=== PATIENT | male | born 1965 | race Caucasian/White ===

== ENCOUNTER 2022-11-14 02:41 | Observation (INO) | payer OTHER ==
[~2022-11-14] VITALS: Ht 180.3 cm; Wt 111.9 kg
--- NOTE | 2022-11-14 03:07 | ED EENT ---
History of Present Illness General Chief Complaint: Facial Problems Stated Complaint: RT SIDE OF FACE INFECTION Source: patient History of Present Illness Date Seen by Provider: Nov 14, 2022 Time Seen by Provider: 02:57 Initial Comments PT ARRIVES VIA POV FROM HOME C/O INFECTION TO NOSE AND FACE STATES HE HAD A SORE ON THE INSIDE OF HIS RIGHT NOSTRIL-NOTICED ON Friday11/09/22 NOW IT HAS SPREAD TO MOST OF HIS NOSE AND RIGHT SIDE OF HIS FACE NO KNOWN FEVER OR CHILLS + NAUSEA, NO VOMITING HE HAS HAD THIS SAME PROBLEM IN 2016 AND HAD MRSA IN HIS NOSE. HE HAS HAD MRSA INFECTIONS MULTIPLE TIMES TO VARIOUS PARTS OF HIS BODY HE WENT TO [facility] WALK IN [facility] TODAY--11/13/22--AND RECEIVED A SHOT OF TORADOL AND WAS STARTED ON ORAL CLINDAMYCIN AND STEROIDS PT HAS HAD INCREASED PAIN, AND WOKE UP 1 HOUR AGO WITH SEVERE PAIN --RATES PAIN 8/10 HE HAS NOT TAKEN ANYTHING FOR PAIN HE HAS HAD ONE DOSE OF CLINDAMYCIN HE ALSO REPORTS A COUPLE OF WEEKS AGO, HE HAD 2 LOWER MOLARS REMOVED THAT AREA IS STILL SORE. 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 HE CLAIMS NO RECENT USE OF DRUGS OR ALCOHOL. PCP: [facility] Allergies and Home Medications Allergies Coded Allergies: amoxicillin (Verified Allergy, Intermediate, NAUSEA AND VOMITING, 11/14/22) Patient Home Medication List Home Medication List Reviewed: Yes Review of Systems Review of Systems Constitutional: no symptoms reported Eyes: No Symptoms Reported Ears: No Symptoms Reported Nose: see HPI Mouth: see HPI Throat: no symptoms reported Respiratory: no symptoms reported Cardiovascular: no symptoms reported Gastrointestinal: see HPI, nausea; No vomiting Musculoskeletal: no symptoms reported Skin: see HPI Neurological: No Symptoms Reported Hematologic/Lymphatic: No Symptoms Reported Immunological/Allergic: no symptoms reported Past Yhuojpk-Jelntz-Grcuzm Hx Patient Social History Tobacco Use?: Yes Tobacco type used: Cigarettes Smoking Status: Former Smoker Substance use?: Yes Substance type: Amphetamines, Methamphetamine, Opiates/Opioids, Misuse of prescript meds Additional substance use comme: FORMER OPIATE AND METHAMPHETMINE USE Alcohol Use?: Yes Pt feels they are or have been: No Past Medical History Surgery/Hospitalization HX: HEP C, L ANKLE SX Surgeries: Yes (LEFT ANKLE FX / ORIF) Orthopedic Respiratory: No Cardiac: No Neurological: No Genitourinary: No Gastrointestinal: Yes (HEPATITIS C--NO TREATMENT; ESOPHAGEAL SPASM 2014) Hepatitis Musculoskeletal: Yes (LEFT ANKLE FX / ORIF) Endocrine: No HEENT: Yes (MRSA OF NOSE / CELLULITIS) Cancer: No Psychosocial: Yes (POLYSUBSTANCE ABUSE) Integumentary: Yes (MRSA OF NOSE / CELLULITIS; MRSA INFECTIONS MULTIPLE TIMES) Blood Disorders: No Family Medical History SOCIAL HISTORY: -PER PT ON 10/2022 -SMOKES 1/2 PPD, RECENTLY QUIT -ETOH ABUSE--CLAIMS NO RECENT USE--DOES NOT ELABORATE -DRUG ABUSE--+ IV METHAMPHETAMINE USE AND OPIATE ABUSE--CLAIMS NO RECENT USE, BUT DOES NOT ELABORATE Physical Exam Vital Signs Vital Signs - First Documented 11/14/22 02:56 Temp 36.0 Pulse 85 Resp 18 B/P (MAP) 148/92 (110) Pulse Ox 97 O2 Delivery Room Air Height, Weight, BMI Height: '" Weight: lbs. oz. kg; BMI Method: General Appearance: WD/WN, no apparent distress, other (ANXIOUS, CONSTANT MOVEMENTS, CONSTANTLY RUBBING EYES. DOES NOT MAKE EYE CONTACT) Eyes: bilateral eye PERRL, bilateral eye EOMI, bilateral eye other (BOTH CONJUNCTIVA INJECTED, BUT NO PURULENT DRAINAGE, NO PERIORBITAL INFLAMMATION OR EDEMA OR TENDERNESS. ) Ears: bilateral ear auricle normal, bilateral ear canal normal, bilateral ear TM normal Nose: other (MODERATE SWELLING AND ERYTHEMA TO ENTIRE NOSE. VERY TENDER. THERE IS NASAL CONGESTION AND CLEAR RHINORRHEA BILATERALLY. VERY LIMITED EXAM OF NOSE DUE TO PT DISCOMFORT. ) Mouth/Throat: other (TENDERNESS TO RIGHT MAXILLA AND MANDIBLE, BUT NO OBVIOUS SWELLING OR ERYTHEMA TO THESE AREAS. THERE IS POOR DENTITION. RIGHT LOWER MOLAR AREA, WITH MILD GINGIVAL INFLAMMATION AROUND SITES OF PRIOR DENTAL EXTRACTIONS. NO FLUCTUANCE OR DRAINAGE. ) Neck: non-tender, full range of motion, supple, normal inspection Cardiovascular: regular rate, rhythm, no murmur Respiratory: normal breath sounds Neurologic/Psychiatric: outside energy sales representatives II-XII nml as tested, no motor/sensory deficits, alert, oriented x 3 Skin: normal color, warm/dry Progress/Results/Core Measures Results/Orders Lab Results Laboratory Tests Test 11/14/22 03:15 11/14/22 03:35 Range/Units White Blood Count 8.1 4.3-11.0 10^3/uL Red Blood Count 4.82 4.30-5.52 10^6/uL Hemoglobin 15.6 13.3-17.7 g/dL Hematocrit 45 40-54 % Mean Corpuscular Volume 93 80-99 fL Mean Corpuscular Hemoglobin 32 25-34 pg Mean Corpuscular Hemoglobin Concent 35 32-36 g/dL Red Cell Distribution Width 12.6 10.0-14.5 % Platelet Count 296 130-400 10^3/uL Mean Platelet Volume 9.6 9.0-12.2 fL Immature Granulocyte % (Auto) 0 % Neutrophils (%) (Auto) 54 42-75 % Lymphocytes (%) (Auto) 30 12-44 % Monocytes (%) (Auto) 12 0-12 % Eosinophils (%) (Auto) 2 0-10 % Basophils (%) (Auto) 1 0-10 % Neutrophils # (Auto) 4.4 1.8-7.8 10^3/uL Lymphocytes # (Auto) 2.5 1.0-4.0 10^3/uL Monocytes # (Auto) 1.0 0.0-1.0 10^3/uL Eosinophils # (Auto) 0.2 0.0-0.3 10^3/uL Basophils # (Auto) 0.1 0.0-0.1 10^3/uL Immature Granulocyte # (Auto) 0.0 0.0-0.1 10^3/uL Erythrocyte Sedimentation Rate 12 0-30 MM/HR Prothrombin Time 12.2 12.2-14.7 SEC INR Comment 0.9 0.8-1.4 Activated Partial Thromboplast Time 29 24-35 SEC Sodium Level 141 135-145 MMOL/L Potassium Level 3.9 3.6-5.0 MMOL/L Chloride Level 109 H 98-107 MMOL/L Carbon Dioxide Level 22 21-32 MMOL/L Anion Gap 10 5-14 MMOL/L Blood Urea Nitrogen 12 7-18 MG/DL Creatinine 1.08 0.60-1.30 MG/DL Estimat Glomerular Filtration Rate 81 BUN/Creatinine Ratio 11 Glucose Level 163 H 70-105 MG/DL Lactic Acid Level 1.14 0.50-2.00 MMOL/L Calcium Level 9.8 8.5-10.1 MG/DL Corrected Calcium 9.8 8.5-10.1 MG/DL Magnesium Level 2.1 1.6-2.4 MG/DL Total Bilirubin 0.4 0.1-1.0 MG/DL Aspartate Amino Transf (AST/SGOT) 33 5-34 U/L Alanine Aminotransferase (ALT/SGPT) 46 0-55 U/L Alkaline Phosphatase 74 40-136 U/L C-Reactive Protein High Sensitivity 0.86 H 0.00-0.50 MG/DL Total Protein 7.6 6.4-8.2 GM/DL Albumin 4.0 3.2-4.5 GM/DL Serum Alcohol < 10 <10 MG/DL Urine Color YELLOW Urine Clarity CLEAR Urine pH 8.0 5-9 Urine Specific [place] 1.010 L 1.016-1.022 Urine Protein NEGATIVE NEGATIVE Urine Glucose (UA) NEGATIVE NEGATIVE Urine Ketones NEGATIVE NEGATIVE Urine Nitrite NEGATIVE NEGATIVE Urine Bilirubin NEGATIVE NEGATIVE Urine Urobilinogen 0.2 < = 1.0 MG/DL Urine Leukocyte Esterase NEGATIVE NEGATIVE Urine RBC (Auto) NEGATIVE NEGATIVE Urine RBC NONE /HPF Urine WBC NONE /HPF Urine Squamous Epithelial Cells NONE /HPF Urine Crystals PRESENT H /LPF Urine Amorphous Sediment FEW OSMAN PHOSPHATE H /LPF Urine Bacteria NEGATIVE /HPF Urine Casts NONE /LPF Urine Mucus NEGATIVE /LPF Urine Culture Indicated NO Urine Opiates Screen NEGATIVE NEGATIVE Urine Oxycodone Screen NEGATIVE NEGATIVE Urine Methadone Screen NEGATIVE NEGATIVE Urine Propoxyphene Screen NEGATIVE NEGATIVE Urine Barbiturates Screen NEGATIVE NEGATIVE Ur Tricyclic Antidepressants Screen NEGATIVE NEGATIVE Urine Phencyclidine Screen NEGATIVE NEGATIVE Urine Amphetamines Screen NEGATIVE NEGATIVE Urine Methamphetamines Screen NEGATIVE NEGATIVE Urine Benzodiazepines Screen NEGATIVE NEGATIVE Urine Cocaine Screen NEGATIVE NEGATIVE Urine Cannabinoids Screen NEGATIVE NEGATIVE Micro Results Microbiology My Orders Orders - ISAIAS JAIMES DO Ed Iv/Invasive Line Start (11/14/22 03:03) Monitor-Rhythm Ecg Trace Only (11/14/22 03:03) Alcohol (11/14/22 03:03) Cbc With Automated Diff (11/14/22 03:03) Comprehensive Metabolic Panel (11/14/22 03:03) Hs C Reactive Protein (11/14/22 03:03) Drug Screen Stat (Urine) (11/14/22 03:03) Lactic Acid Analyzer (11/14/22 03:03) Magnesium (11/14/22 03:03) Protime With Inr (11/14/22 03:03) Partial Thromboplastin Time (11/14/22 03:03) Ua Culture If Indicated (11/14/22 03:03) Blood Culture (11/14/22 03:03) Erythrocyte Sedimentation Rate (11/14/22 03:03) Sputum Culture (11/14/22 03:03) Ed Iv/Invasive Line Start (11/14/22 03:03) Ed Iv/Invasive Line Start (11/14/22 03:03) Vital Signs Adult Sepsis Patie Q15M (11/14/22 03:03) Ondansetron Injection (Zofran Injectio (11/14/22 03:15) O2 (11/14/22 03:03) Remove Rings In Anticipation O (11/14/22 03:03) Cefepime Injection (Maxipime Injection) (11/14/22 03:15) Vancomycin Injection (Vancomycin Injecti (11/14/22 03:15) Ct Maxillofacial W (11/14/22 03:03) Ketorolac Injection (Toradol Injection) (11/14/22 03:15) Ed Iv/Invasive Line Start (11/14/22 03:07) Lactated Ringers (Lr 1000 Ml Iv Solution (11/14/22 03:15) Iohexol Injection (Omnipaque 350 Mg/Ml 1 (11/14/22 04:15) Received Contrast (Hold Metformin- Contr (11/14/22 04:15) Ns (Ivpb) (Sodium Chloride 0.9% Ivpb Bag (11/14/22 04:15) [facility] Nursing Screening/Treatme Q24HX1 (11/14/22 04:06) Nasal/Nasopharyngeal Culture (11/14/22 04:06) [facility] Screen Physician Request (11/14/22 04:04) Ed Admission (Communication) (11/14/22 04:41) Medications Given in ED Current Medications Medications Dose Ordered Sig/Basilia Route Start Time Stop Time Status Last Admin Dose Admin Cefepime HCl 1000 mg/Sodium Chloride 50 ml @ 100 mls/hr ONCE ONCE IV 11/14/22 03:15 11/14/22 03:44 DC 11/14/22 03:29 100 MLS/HR Iohexol 100 ml ONCE ONCE IV 11/14/22 04:15 11/14/22 04:39 DC 11/14/22 04:11 75 ML Ketorolac Tromethamine 30 mg ONCE ONCE IVP 11/14/22 03:15 11/14/22 03:16 DC 11/14/22 03:28 30 MG Lactated Ringer's 1,000 ml @ 0 mls/hr Q0M ONCE IV 11/14/22 03:15 11/14/22 03:16 DC 11/14/22 03:29 1,000 MLS/HR Ondansetron HCl 4 mg PRN PRN IV 11/14/22 03:15 11/14/22 03:29 DC 11/14/22 03:28 4 MG Sodium Chloride 100 ml ONCE ONCE IV 11/14/22 04:15 11/14/22 04:39 DC 11/14/22 04:11 80 ML Vital Signs/I&O 11/14/22 02:56 Temp 36.0 Pulse 85 Resp 18 B/P (MAP) 148/92 (110) Pulse Ox 97 O2 Delivery Room Air Progress Progress Note : Progress Note SEPSIS PROTOCOL INITIATED NASAL SWAB FOR MRSA SCREEN AND NASAL CULTURE OBTAINED GIVEN: -IV FLUIDS -CEFEPIME + VANCOMYCIN -TORADOL -ZOFRAN VITALS ON ADMIT: TEMP 36.0=96.8, HR 85, RR 18, BP 148/92, O2 SAT 97% ON RA FOCUS EXAM AT 0405 -SEPSIS RULED OUT, PT DOES NOT MEET CRITERIA--PT IS AFEBRILE, NORMAL WBC, NORMAL LACTIC ACID, NORMAL VITALS. MUCH IMPROVEMENT IN PAIN AND NAUSEA WITH TORADOL AND ZOFRAN PT IS MUCH CALMER, HE NOW MAKES EYE CONTACT, NO LONGER RUBBING HIS EYES. HE IS PLEASANT AND COOPERATIVE. NO DETERIORATION IN PT'S CONDITION DURING ER STAY DISCUSSED TEST RESULTS, NEED FOR ADMIT AND PT IS AGREEABLE TO PLAN. NO PRIOR VISITS HERE. Diagnostic Imaging Comments CT MAXILLOFACIALS--PER [facility] VIA FAX AT 0434 -MODERATE DAVID-NASAL AND RIGHT ANTERIOR FACE SOFT TISSUE EDEMA -NO EVIDENCE OF ABSCESS -REACTIVE ENLARGED RIGHT SUBMANDIBULAR ADENOPATHY MEASURING UP TO 18 MM Reviewed: Reviewed by Me Departure Communication (Admissions) 0435--SPOKE WITH DR. RAMSEY, HOSPITALIST FOR [facility], ACCEPTS PT FOR ADMIT. SHE WILL DO ADMIT ORDERS. Impression Primary Impression: CELLULITIS OF NOSE AND FACE Additional Impression: Hx of methicillin resistant Staphylococcus aureus infection Disposition: ADMITTED INPATIENT Condition: Stable Admissions Decision to Admit Reason: Admit from ER (General) Decision to Admit/Date: Nov 14, 2022 Time/Decision to Admit Time: 04:35 Departure-Patient Inst. Referrals: KELLY QUEVEDO APRN (PCP/Family) Primary Care Physician ISAIAS JAIMES DO Nov 14, 2022 03:07
[2022-11-14] MEDS ORDERED: KETOROLAC 30 MG/ML VIAL IVP ONE (03:15)
[2022-11-14] MEDS ORDERED: LACTATED RINGERS 1,000 ML IV ONE (03:15)
[2022-11-14] MEDS ORDERED: CEFEPIME INJECTION 1,000 MG in NS (IVPB) 50 ML IV ONE (03:15)
[2022-11-14] MEDS ORDERED: ONDANSETRON 4 MG/2 ML (SDV) Z0FRAN IV PRN ×2 (03:15→06:00)
[2022-11-14 03:26] LABS: BASOPHILS # (AUTO) 0.1 10^3/uL (0.0-0.1); BASOPHILS % (AUTO) 1 % (0-10); EOSINOPHILS # (AUTO) 0.2 10^3/uL (0.0-0.3); EOSINOPHILS % (AUTO) 2 % (0-10); HEMATOCRIT 45 % (40-54); HEMOGLOBIN 15.6 g/dL (13.3-17.7); LYMPHOCYTES # (AUTO) 2.5 10^3/uL (1.0-4.0); LYMPHOCYTES % (AUTO) 30 % (12-44); MEAN CORPUSCULAR HEMOGLOBIN 32 pg (25-34); MEAN CORPUSCULAR HGB CONC 35 g/dL (32-36); MEAN CORPUSCULAR VOLUME 93 fL (80-99); MEAN PLATELET VOLUME 9.6 fL (9.0-12.2); MONOCYTES % (AUTO) 12 % (0-12); NEUTROPHILS # (AUTO) 4.4 10^3/uL (1.8-7.8); NEUTROPHILS % (AUTO) 54 % (42-75); PLATELET COUNT 296 10^3/uL (130-400); WHITE BLOOD COUNT 8.1 10^3/uL (4.3-11.0)
[2022-11-14 03:37] LABS: CHLORIDE 109 MMOL/L (98-107); POTASSIUM 3.9 MMOL/L (3.6-5.0); SODIUM 141 MMOL/L (135-145)
[2022-11-14 03:38] LABS: CALCIUM 9.8 MG/DL (8.5-10.1); INR 0.9 (0.8-1.4); PROTHROMBIN TIME PATIENT 12.2 SEC (12.2-14.7)
[2022-11-14 03:39] LABS: GLUCOSE 163 MG/DL (70-105); TOTAL PROTEIN 7.6 GM/DL (6.4-8.2)
[2022-11-14 03:40] LABS: BILIRUBIN,URINE NEGATIVE (NEGATIVE); CLARITY,URINE CLEAR; COLOR,URINE YELLOW; GLUCOSE, URINE (UA) NEGATIVE (NEGATIVE); KETONES,URINE NEGATIVE (NEGATIVE); LEUKOCYTE ESTERASE ,URINE NEGATIVE (NEGATIVE); NITRITE,URINE NEGATIVE (NEGATIVE); PROTEIN,URINE NEGATIVE (NEGATIVE)
[2022-11-14 03:40] LABS: CARBON DIOXIDE 22 MMOL/L (21-32)
[2022-11-14 03:41] LABS: BILIRUBIN,TOTAL 0.4 MG/DL (0.1-1.0)
[2022-11-14 03:43] LABS: ALKALINE PHOSPHATASE 74 U/L (40-136); CREATININE SERUM 1.08 MG/DL (0.60-1.30); GFR ESTIMATED 81
[2022-11-14 03:44] LABS: BUN/CREATININE RATIO 11
[2022-11-14 03:46] LABS: ALANINE AMINOTRANSFERASE 46 U/L (0-55)
[2022-11-14 03:47] LABS: MAGNESIUM 2.1 MG/DL (1.6-2.4)
[2022-11-14 03:49] LABS: AMORPHOUS SEDIMENT,UR FEW AMOR PHOSPHATE /LPF; BACTERIA,URINE NEGATIVE /HPF
[2022-11-14 03:51] LABS: ERYTHROCYTE SEDIMENTATION RATE 12 MM/HR (0-30)
[2022-11-14 03:51] LABS: AMPHETAMINE SCREEN, URINE NEGATIVE (NEGATIVE); BARBITURATE SCREEN URINE NEGATIVE (NEGATIVE); BENZODIAZEPINES SCREEN URINE NEGATIVE (NEGATIVE); CANNABINOID SCREEN, URINE NEGATIVE (NEGATIVE); COCAINE SCREEN URINE NEGATIVE (NEGATIVE); METHADONE STAT NEGATIVE (NEGATIVE); OPIATE SCREEN URINE NEGATIVE (NEGATIVE); OXYCODONE STAT NEGATIVE (NEGATIVE); PROPOXYPHENE STAT NEGATIVE (NEGATIVE); TRICYCLIC ANTIDEPRESSANTS SCRE NEGATIVE (NEGATIVE)
[2022-11-14] MEDS ORDERED: HOLD METFORMIN - RECEIVED CONTRAST 20 ML VIAL IV SCH (04:15)
[2022-11-14] MEDS ORDERED: IOHEXOL 350 MG/ML 100 ML (OMNIPAQUE 350) VIAL IV ONE (04:15)
[2022-11-14] MEDS ORDERED: NS 100 ML (IVPB) BAG IV ONE (04:15)
[2022-11-14] MEDS: VANCOMYCIN INJECTION 1,000 MG in NS (IVPB) 250 ML IV SCH ×2 (04:20→05:32)
[2022-11-14] MEDS ORDERED: ANTACID SUSP 30 ML UDC (MYLANTA) PO PRN (06:00)
[2022-11-14] MEDS ORDERED: MELATONIN 3 MG TABLET PO PRN (06:00)
[2022-11-14] MEDS ORDERED: CALCIUM CARBONATE 500 MG (TUMS) TAB.CHEW PO PRN (06:00)
[2022-11-14] MEDS ORDERED: ACETAMINOPHEN 325 MG TABLET PO PRN (06:00)
[2022-11-14] MEDS ORDERED: LACTULOSE SYRUP 10GM/15ML (ENULOSE) 30ML UDC PO PRN (06:00)
[2022-11-14] MEDS ORDERED: MILK OF MAGNESIA 400 MG/5 ML 30 ML UDC PO PRN (06:00)
[2022-11-14] MEDS ORDERED: VANCOMYCIN INJECTION 0.1 MG in NS (IVPB) 250 ML IV SCH (06:00)
[2022-11-14] MEDS ORDERED: HYDROmorphone 2 MG/ML VIAL (DILAUDID) IV PRN (06:00)
[2022-11-14] MEDS ORDERED: polyethylene glycoL POWDER 17 GM (MIRALAX) PACK PO PRN (06:00)
[2022-11-14] MEDS ORDERED: diphenhydrAMINE 50 MG/ML INJ (BENADRYL) IVP PRN (06:00)
[2022-11-14] MEDS ORDERED: ONDANSETRON 4 MG (ZOFRAN) ORAL DISSOLVE TAB PO PRN (06:00)
[2022-11-14] MEDS ORDERED: cloNIDine 0.1 MG (CATAPRES) TAB PO PRN (06:00)
[2022-11-14] MEDS ORDERED: ALPRAZolam 1 MG (XANAX) TAB PO PRN (06:00)
[2022-11-14] MEDS ORDERED: BISACODYL 10 MG SUPP (DULCOLAX) PR PRN (06:00)
[2022-11-14] MEDS ORDERED: diphenhydrAMINE 25 MG TAB (BENADRYL) PO PRN (06:00)
[2022-11-14 06:16] VITALS: BP 148/92
--- NOTE | 2022-11-14 06:24 | Diagnostic Imaging Report ---
PROCEDURE: CT maxillofacial with contrast. TECHNIQUE: After intravenous administration of contrast, axial images were obtained through the face and reformatted into coronal and sagittal planes. Auto Exposure Controls were utilized during the CT exam to meet ALARA standards for radiation dose reduction. INDICATION: Facial pain and swelling. No prior examinations are available for comparison. FINDINGS: The calvarium and facial bones are intact. There is no fracture. There is some soft tissue swelling in the right anterior face and nasal region. There is no evidence of discrete abscess. The orbits and intraorbital structures are unremarkable. Sinuses are clear. There is a large right submandibular lymph node measuring up to 1.8 cm likely reactive. IMPRESSION: Moderate paranasal and right anterior face soft tissue edema without discrete abscess. There is what appears to be a reactive appearing enlarged right submandibular lymph node measuring up to 1.8 cm. Dictated by: Dictated on workstation # [id number]
[2022-11-14] MEDS: NS IV 1000 ML 1,000 ML IV SCH ×3 (06:29→21:51)
[2022-11-14] MEDS ORDERED: RT-ALBUTEROL SULF 2.5 MG/3 ML PRE-MIX VIAL INH PRN (06:30)
[2022-11-14] MEDS: ENOXAPARIN 40 MG/0.4 ML (LOVENOX) SYR SC SCH (06:33)
[2022-11-14 07:17] VITALS: BP 118/71
[2022-11-14] MEDS: DOCUSATE SODIUM 100 MG (COLACE) CAP PO SCH ×2 (07:49→20:57)
[2022-11-14] MEDS: SENNOSIDES 8.6 MG (SENOKOT) TAB PO SCH ×2 (07:49→20:58)
[2022-11-14] MEDS: CEFEPIME INJECTION 1,000 MG in NS (IVPB) 50 ML IV SCH ×3 (10:33→20:07)
--- NOTE | 2022-11-14 11:16 | Consultation - Surgery ---
SANDOVAL FORMAN 11/14/22 1116: History of Present Illness History of Present Illness Patient Consulted On(shannon/time) 11/14/22 11:03 Date Seen by Provider: Nov 14, 2022 Time Seen by Provider: 10:30 Reason for Visit: facial pain, swelling, possible abcess History of Present Illness Pt was seen lying comfortably in bed, he was alert and oriented x4, has been having pain in his right nostril since friday and said it felt like it got infected and began to spread from his nose laterally to his maxilla, mandibular angle, and preauricular regions. He mentioned having an associated headache that was causing pressure on the front of his head and mildly alleviated by placing pressure on his frontal sinus. The headache and pain has caused him to feel nauseas but he denies any fevers, chills, myalgia, or vomiting. He said he had this happen before in 2015 where he let the infection go untreated for a longer period than this time, he showed me pictures of his past that showed cellulitis with what looked like scattered small( .25-.5cm) black eschar like scabbing from his right nose to his maxilla. He said they just gave him abx and that was enough to help him recover. He is agreeable to the idea of a possible incision and drainage. Denies CP, SOB, abd pain, vision changes. +frontal lobe headache, poor dentition, nausea Allergies and Home Medications Allergies Coded Allergies: amoxicillin (Verified Allergy, Intermediate, NAUSEA AND VOMITING, 11/14/22) Patient Home Medication List Acetaminophen (Tylenol Extra Strength) 500 Mg Tablet, 1,000 MG PO Q8H PRN for PAIN-MILD (1-4), (Reported) Entered as Reported by: AJAY PORRAS on 11/14/221599 Last Action: Reviewed Clindamycin HCl (Clindamycin HCl) 150 Mg Capsule, 450 MG PO TID, (Reported) Entered as Reported by: AJAY PORRAS on 11/14/221599 Last Action: Reviewed Ibuprofen (Ibuprofen) 200 Mg Tablet, 400-600 MG PO Q8H PRN for PAIN-MILD (1-4), (Reported) Entered as Reported by: AJAY PORRAS on 11/14/221599 Last Action: Reviewed Past Xvhlahn-Esccrb-Qveokt Hx Patient Social History Smoking Status: Former Smoker Alcohol Use?: No Substance type: Amphetamines, Methamphetamine, Opiates/Opioids, Misuse of prescript meds Have you traveled recently?: No Surgeries History of Surgeries: Yes (LEFT ANKLE FX / ORIF) Surgeries: Orthopedic Respiratory History of Respiratory Disorde: No Cardiovascular History of Cardiac Disorders: No Neurological History of Neurological Disord: No Genitourinary History of Genitourinary Disor: No Gastrointestinal History of Gastrointestinal Di: Yes (HEPATITIS C--NO TREATMENT; ESOPHAGEAL SPASM 2014) Gastrointestinal Disorders: Hepatitis Musculoskeletal History of Musculoskeletal Dis: Yes (LEFT ANKLE FX / ORIF) Endocrine History of Endocrine Disorders: No HEENT History of HEENT Disorders: Yes (MRSA OF NOSE / CELLULITIS) Cancer History of Cancer: No Psychosocial History of Psychiatric Problem: Yes (POLYSUBSTANCE ABUSE) Integumentary History of Skin or Integumenta: Yes (MRSA OF NOSE / CELLULITIS; MRSA INFECTIONS MULTIPLE TIMES) Blood Transfusions History of Blood Disorders: No Review of Systems-General Constitutional: No chills, No diaphoresis, No dizziness, No fever, No weakness EENTM: nose pain; No blurred vision, No double vision, No hoarseness, No mouth pain, No epistaxis Respiratory: No cough, No dyspnea on exertion, No short of breath Cardiovascular: No chest pain, No palpitations Gastrointestinal: No abdominal pain; nausea; No vomiting Genitourinary: No dysuria, No hematuria Musculoskeletal: No muscle stiffness, No muscle cramps, No neck pain Skin: change in color (right nose to right preauricular region, down to mandibular angle), rash (on face) Psychiatric/Neurological: Anxiety; Denies Depressed; Headache; Denies Numbness, Denies Weakness Physical Exam-General Problems Physical Exam Vital Signs Vital Signs - First Documented 11/14/22 11/14/22 02:56 06:16 Temp 36.0 Pulse 85 Resp 18 B/P (MAP) 148/92 (110) Pulse Ox 97 O2 Delivery Room Air FiO2 21 Capillary Refill : Less Than 3 Seconds General Appearance: no apparent distress, obese Eyes: Bilateral Eye PERRL, Bilateral Eye EOMI HEENT: PERRL/EOMI, pharynx normal; No scleral icterus (R), No scleral icterus (L), No photophobia, No tonsillar exudate; other (There is a black nodule inside the right nostril on the anterior lateral aspect of the lumen, ~1-2cm. it appears to be folliculitis, or commodomal in nature. There is no fluctulance felt and no visible/reported purulent discharge) Neck: non-tender, full range of motion, supple, lymphadenopathy (R) (submandibular 1.5cm); No thyromegaly Respiratory: chest non-tender, lungs clear, no respiratory distress, no accessory muscle use Cardiovascular: regular rate, rhythm, no murmur Peripheral Pulses: 2+ Radial Pulses (R), 2+ Radial Pulses (L) Gastrointestinal: non tender, soft; No guarding Back: no CVA tenderness, no vertebral tenderness Extremities: normal range of motion, non-tender; No swelling Neurologic/Psychiatric: alert, oriented x 3; No aphasia, No EOM palsy, No facial droop Skin: warm/dry; No diaphoresis; other ((calor, rubor, dolor, tumor) on right side of face), rash (evenly distributed beefy red erythema of the face and nose) Lymphatic: other (right anterior cervical node) Data Review Labs Laboratory Tests 11/14/22 03:15: White Blood Count 8.1, Red Blood Count 4.82, Hemoglobin 15.6, Hematocrit 45, Mean Corpuscular Volume 93, Mean Corpuscular Hemoglobin 32, Mean Corpuscular Hemoglobin Concent 35, Red Cell Distribution Width 12.6, Platelet Count 296, Mean Platelet Volume 9.6, Immature Granulocyte % (Auto) 0, Neutrophils (%) (Auto) 54, Lymphocytes (%) (Auto) 30, Monocytes (%) (Auto) 12, Eosinophils (%) (Auto) 2, Basophils (%) (Auto) 1, Neutrophils # (Auto) 4.4, Lymphocytes # (Auto) 2.5, Monocytes # (Auto) 1.0, Eosinophils # (Auto) 0.2, Basophils # (Auto) 0.1, Immature Granulocyte # (Auto) 0.0, Erythrocyte Sedimentation Rate 12, Prothrombin Time 12.2, INR Comment 0.9, Activated Partial Thromboplast Time 29, Sodium Level 141, Potassium Level 3.9, Chloride Level 109H, Carbon Dioxide Level 22, Anion Gap 10, Blood Urea Nitrogen 12, Creatinine 1.08, Estimat Glomerular Filtration Rate 81, BUN/Creatinine Ratio 11, Glucose Level 163H, Lactic Acid Level 1.14, Calcium Level 9.8, Corrected Calcium 9.8, Magnesium Level 2.1, Total Bilirubin 0.4, Aspartate Amino Transf (AST/SGOT) 33, Alanine Aminotransferase (ALT/SGPT) 46, Alkaline Phosphatase 74, C-Reactive Protein High Sensitivity 0.8 6H, Total Protein 7.6, Albumin 4.0, Serum Alcohol < 10 11/14/22 03:35: Urine Color YELLOW, Urine Clarity CLEAR, Urine pH 8.0, Urine Specific [place] 1.010L, Urine Protein NEGATIVE, Urine Glucose (UA) NEGATIVE, Urine Ketones NEGATIVE, Urine Nitrite NEGATIVE, Urine Bilirubin NEGATIVE, Urine Urobilinogen 0.2, Urine Leukocyte Esterase NEGATIVE, Urine RBC (Auto) NEGATIVE, Urine RBC NONE, Urine WBC NONE, Urine Squamous Epithelial Cells NONE, Urine Crystals PRESENTH, Urine Amorphous Sediment FEW OSMAN PHOSPHATEH, Urine Bacteria NEGATIVE, Urine Casts NONE, Urine Mucus NEGATIVE, Urine Culture Indicated NO, Urine Opiates Screen NEGATIVE, Urine Oxycodone Screen NEGATIVE, Urine Methadone Screen NEGATIVE, Urine Propoxyphene Screen NEGATIVE, Urine Barbiturates Screen NEGATIVE, Ur Tricyclic Antidepressants Screen NEGATIVE, Urine Phencyclidine Screen NEGATIVE, Urine Amphetamines Screen NEGATIVE, Urine Methamphetamines Screen NEGATIVE, Urine Benzodiazepines Screen NEGATIVE, Urine Cocaine Screen NEGATIVE, Urine Cannabinoids Screen NEGATIVE Microbiology Assessment/Plan Assessment/Plan Assessment/Plan Facial Cellulitis Possible nasal cavity abscess Hx of MRSA infections * Due to the size, location, CT findings, and current presentation, pt does not appear to have need of incision & drainage * Continue conservative management with current abx regimen * continue to monitor for failure of improvement, increased size of intranasal nodule (fluctulance and or purulent discharge). BRUCE TAY DO 11/14/221905: History of Present Illness History of Present Illness History of Present Illness Consult for facial cellulitis requested by Dr. Kern. Patient is a 57 year old male who has been having right nostril pain for 6 days. Patient with increasing pressure in sinuses and the right nose. Was given Clindamycin from clinic and took a dose but due to pain went to ED. Since being admitted he states his nose is starting to feel better. Not worsening. Pain is better controlled. Has no other complaints. Had ct scan maxillofacial: Moderate paranasal and right anterior face soft tissue edema without discrete abscess. There is what appears to be a reactive appearing enlarged right submandibular lymph node measuring up to 1.8 cm. Allergies and Home Medications Allergies Coded Allergies: amoxicillin (Verified Allergy, Intermediate, NAUSEA AND VOMITING, 11/14/22) Patient Home Medication List Home Medication List Reviewed: Yes Acetaminophen (Tylenol Extra Strength) 500 Mg Tablet, 1,000 MG PO Q8H PRN for PAIN-MILD (1-4), (Reported) Entered as Reported by: AJAY PORRAS on 11/14/221599 Last Action: Reviewed Clindamycin HCl (Clindamycin HCl) 150 Mg Capsule, 450 MG PO TID, (Reported) Entered as Reported by: AJAY PORRAS on 11/14/221599 Last Action: Reviewed Ibuprofen (Ibuprofen) 200 Mg Tablet, 400-600 MG PO Q8H PRN for PAIN-MILD (1-4), (Reported) Entered as Reported by: AJAY PORRAS on 11/14/221599 Last Action: Reviewed Past Njmduyo-Fnolhq-Jojloo Hx Reviewed Nursing Assessment Reviewed/Agree w Nursing PMH: Yes Family Medical History Significant Family History: No Pertinent Family Hx Review of Systems-General Constitutional: No chills, No fever EENTM: nose pain; No blurred vision, No double vision Respiratory: No cough, No dyspnea on exertion Cardiovascular: No chest pain, No palpitations Gastrointestinal: No abdominal pain; nausea; No vomiting Genitourinary: No dysuria, No hematuria Musculoskeletal: No back pain, No joint pain Skin: change in color (right nose to right preauricular region, down to ma ndibular angle), rash (on face) Psychiatric/Neurological: Anxiety; Denies Depressed; Headache; Denies Numbness, Denies Weakness All Other Systems Reviewed Negative Unless Noted: Yes (Negative excepted noted.) Physical Exam-General Problems Physical Exam General Appearance: no apparent distress, obese HEENT: PERRL/EOMI, other (There is a black nodule inside the right nostril on the anterior lateral aspect of the lumen, ~1-2cm. i There is no fluctulance felt and no visible/reported purulent discharge) Gastrointestinal: non tender, soft Rectal: deferred Back: no CVA tenderness Extremities: normal range of motion, non-tender Neurologic/Psychiatric: alert, oriented x 3 Skin: warm/dry, rash (evenly distributed beefy red erythema of the face and nose) Lymphatic: other (right anterior cervical node) Assessment/Plan Assessment/Plan Assessment/Plan Facial Cellulitis Hx of MRSA infections Lymphadenopathy cervical * by physical exam and CT findings, pt does not appear to have need of incision & drainage * Continue conservative management with current abx regimen * Cevical lymphadenopathy likely reactive Supervisory-Addendum Brief Verification & Attestation Participated in pt care: history, MDM, physical Personally performed: exam, history, MDM, supervision of care Care discussed with: Medical Student Procedures: n/a Results interpretation: Verified all documentation Verification and Attestation of Medical Student E/M Service A medical student performed and documented this service in my presence. I reviewed and verified all information documented by the medical student and made modifications to such information, when appropriate. I personally performed the physical exam and medical decision making. Bruce Tay, Nov 14, 2022,19:10 SANDOVAL FORMAN Nov 14, 2022 11:16 BRUCE TAY DO Nov 14, 2022 19:06
[2022-11-14 11:26] VITALS: BP 120/75
--- NOTE | 2022-11-14 13:26 | History & Physical-Hospitalist ---
REBECAIZTA T 11/14/22 1326: History of Present Illness HPI/Chief Complaint Mr. Fuentes is a 57 year old male with pmhx significant for hep C (untreated), hx of MRSA infections who presented to the ED on the day of admission with infection to the nose and face. Pt reports that he had a sore that developed on 11/09 on the inside of his right nostril which he notes to have spread. He has a hx of this in 2016 and has had MRSA in the nose and MRSA infections in multiple areas of the body. Pt reports that he went to [facility] the day before coming in the ED and was prescribed toradol, oral clindamycin and steroids. He says that after [facility] visit he had severe worsening pain during the night which caused him to go to the ER. Today patient reports that his pain has significantly improved and is a 4/10, he has noticed decreased swelling. Pt has associated ANN and nausea. Pt denies any nsasl drainage, fever, blurry vision, CP, SOB. Pt denies any new or worsening sx. No other complaints. CT scan showed moderate paranasal and right anterior face soft tissue edema without descrete abscess and there is what appears to be a right submandibular lymph node 1.8 cm Source: patient Date Seen 11/14/22 Time Seen by a Provider: 08:20 Attending Physician Raquel Soliz Aprn PCP Admitting Physician: Medina Ramsey DO Attending Physician: Medina Ramsey DO Referring Physician Date of Admission Nov 14, 2022 at 05:46 Home Medications & Allergies Home Medications Reviewed patient Home Medication Reconciliation performed by pharmacy medication reconciliations water technician and/or nursing. Patients Allergies have been reviewed. Allergies Allergies Coded Allergies amoxicillin (Verified Allergy, Intermediate, NAUSEA AND VOMITING, 11/14/22) Past Jlynstc-Hpemep-Awgwmw Hx Patient Social History Tobacco Use?: No Tobacco type used: Cigarettes Smoking Status: Former Smoker Smokeless Tobacco Frequency: Former User Use of E-Cig and/or Vaping dev: No Substance use?: No Substance type: Amphetamines, Methamphetamine, Opiates/Opioids, Misuse of pres cript meds Additional substance use comme: HISTORY OF Alcohol Use?: No Additional alcohol type: HISTORY OF Pt feels they are or have been: No Current Status Advance Directives: No Advance Directive Location: Home Communicates: Verbally Primary Language: Turkish Preferred Spoken Language: Turkish Is interpretation needed?: No Sensory deficits: Vision impairment Implanted or Applied Medical D: Orthopedic hardware Past Medical History Surgeries: Orthopedic Hepatitis Blood Disorders: No Family Medical History SOCIAL HISTORY: -PER PT ON 10/2022 -SMOKES 1/2 PPD, RECENTLY QUIT -ETOH ABUSE--CLAIMS NO RECENT USE--DOES NOT ELABORATE -DRUG ABUSE--+ IV METHAMPHETAMINE USE AND OPIATE ABUSE--CLAIMS NO RECENT USE, BUT DOES NOT ELABORATE Review of Systems Constitutional: no symptoms reported EENTM: nose pain, other (right paranasal tenderness and swelling ); No blurred vision, No double vision Respiratory: no symptoms reported Cardiovascular: no symptoms reported Gastrointestinal: no symptoms reported Genitourinary: no symptoms reported Musculoskeletal: no symptoms reported Skin: No change in color, No lesions Psychiatric/Neurological: Headache All Other Systems Reviewed Negative Unless Noted: Yes Physical Exam Physical Exam Vital Signs Vital Signs - First Documented 11/14/22 11/14/22 02:56 06:16 Temp 36.0 Pulse 85 Resp 18 B/P (MAP) 148/92 (110) Pulse Ox 97 O2 Delivery Room Air FiO2 21 Capillary Refill : Less Than 3 Seconds Height, Weight, BMI Height: '" Weight: lbs. oz. kg; 34.36 BMI Method: General Appearance: No Apparent Distress, WD/WN HEENT: PERRL/EOMI Neck: Normal Inspection, Non Tender Respiratory: Chest Non Tender, Lungs Clear, Normal Breath Sounds, No Accessory Muscle Use, No Respiratory Distress Cardiovascular: Regular Rate, Rhythm, No Edema, Normal Peripheral Pulses Neurologic/Psychiatric: Alert, Oriented x3, Normal Mood/Affect Skin: Normal Color, Warm/Dry, Other (Right paranasal tenderness with mild swelling) Lymphatic: No Adenopathy Results Results/Procedures Labs Laboratory Tests 11/14/22 03:15 Patient resulted labs reviewed. Imaging: Reviewed Imaging Report Assessment/Plan Admission Diagnosis cellulitis Admission Status: Inpatient Order (span 2 midnights) Reason for Inpatient Admission: cellulitis Assessment and Plan Facial Cellulitis Possible nasal cavity abscess Hx of MRSA infection Consult gen surg Vanc and Cefepime Consult gen surg - due to the size, location, CT findings, and current presentation, pt does not appear to have need of incision & drainage Continue to monitor Hep C pos (no treatment) Hx of substance abuse disorder Hx of alcohol abuse disorder Diet:Regular DVT prophylaxis: Lovenox Disposition: likely home tomorrow pending pt status MEDINA RAMSEY DO 11/15/22 0445: Assessment/Plan Admission Diagnosis Admission Status: Inpatient Order (span 2 midnights) Reason for Inpatient Admission: severe cellulitis Supervisory-Addendum Brief Verification & Attestation Participated in pt care: history, MDM, physical Personally performed: exam, history, MDM, supervision of care Care discussed with: Medical Student Procedures: n/a Results interpretation: Verified all documentation Verification and Attestation of Medical Student E/M Service A medical student performed and documented this service in my presence. I reviewed and verified all information documented by the medical student and made modifications to such information, when appropriate. I personally performed the physical exam and medical decision making. Medina Ramsey, Nov 15, 2022,04:45 ZITA JOSE Nov 14, 2022 13:26 MEDINA RAMSEY DO Nov 15, 2022 04:45
[2022-11-14 15:48] VITALS: BP 134/83
[2022-11-14] MEDS: KETOROLAC 30 MG/ML VIAL IVP PRN ×2 (16:00→21:51)
[2022-11-14] MEDS ORDERED: ACET-2267 PO (16:00)
[2022-11-14] MEDS ORDERED: CLIN150C20 PO (16:00)
[2022-11-14] MEDS ORDERED: IBUP-2473 PO (16:00)
[2022-11-14] MEDS: VANCOMYCIN 1500MG/300ML PREMIX IV SCH (17:30)
[2022-11-14 19:51] VITALS: BP 135/76
[2022-11-14 23:30] VITALS: BP 129/74
[2022-11-15] MEDS: KETOROLAC 30 MG/ML VIAL IVP PRN ×2 (03:44→12:14)
[2022-11-15] MEDS: CEFEPIME INJECTION 1,000 MG in NS (IVPB) 50 ML IV SCH ×2 (03:45→08:59)
[2022-11-15 03:51] VITALS: BP 131/79
[2022-11-15] MEDS: VANCOMYCIN 1500MG/300ML PREMIX IV SCH (05:22)
[2022-11-15] MEDS: ENOXAPARIN 40 MG/0.4 ML (LOVENOX) SYR SC SCH (05:22)
[2022-11-15 05:55] LABS: BASOPHILS % (AUTO) 1 % (0-10); EOSINOPHILS # (AUTO) 0.2 10^3/uL (0.0-0.3); EOSINOPHILS % (AUTO) 4 % (0-10); HEMATOCRIT 41 % (40-54); HEMOGLOBIN 14.1 g/dL (13.3-17.7); LYMPHOCYTES # (AUTO) 1.8 10^3/uL (1.0-4.0); LYMPHOCYTES % (AUTO) 27 % (12-44); MEAN CORPUSCULAR HEMOGLOBIN 32 pg (25-34); MEAN CORPUSCULAR HGB CONC 35 g/dL (32-36); MEAN CORPUSCULAR VOLUME 94 fL (80-99); MEAN PLATELET VOLUME 10.3 fL (9.0-12.2); MONOCYTES # (AUTO) 0.7 10^3/uL (0.0-1.0); MONOCYTES % (AUTO) 11 % (0-12); NEUTROPHILS # (AUTO) 3.7 10^3/uL (1.8-7.8); NEUTROPHILS % (AUTO) 57 % (42-75); PLATELET COUNT 220 10^3/uL (130-400); WHITE BLOOD COUNT 6.5 10^3/uL (4.3-11.0)
[2022-11-15 06:28] LABS: ALBUMIN 3.4 GM/DL (3.2-4.5); BILIRUBIN,TOTAL 0.5 MG/DL (0.1-1.0); CALCIUM 9.3 MG/DL (8.5-10.1); CREATININE SERUM 0.92 MG/DL (0.60-1.30); POTASSIUM 4.2 MMOL/L (3.6-5.0); TOTAL PROTEIN 6.6 GM/DL (6.4-8.2)
--- NOTE | 2022-11-15 07:53 | Progress Note - Surgery ---
Subjective Date Seen by a Provider: Nov 15, 2022 Time Seen by a Provider: 07:00 Subjective/Events-last exam Pt was upright in his chair, eating breakfast, in no distress. He reports starting to feel better, and that pain is managed and the redness/heat on his face is going down. Denies fevers, chills, nausea, CP, SOB, v/d, purulent rhinorrhea. +mild paroxysmal headaches, improved from yesterday. Review of Systems General: No Chills, No Night Sweats, No Fatigue, No Malaise HEENT: Head Aches; No Visual Changes, No Dysphasia, No Sore Throat Pulmonary: No Dyspnea, No Cough, No Pleuritic Chest Pain Cardiovascular: No: Chest Pain, Palpitations, Edema, Lt Headedness Gastrointestinal: No: Nausea, Vomiting, Abdominal Pain, Diarrhea, Constipation Genitourinary: No Dysuria, No Incontinence, No Retention Musculoskeletal: No: other, neck pain, shoulder pain, arm pain, back pain, hand pain, leg pain, foot pain Neurological: No: Change in speech, Confusion Focused Exam Lactate Level 11/14/22 03:15: Lactic Acid Level 1.14 Objective Exam Vital Signs Date Time Temp Pulse Resp B/P (MAP) Pulse Ox O2 Delivery O2 Flow Rate FiO2 11/15/22 03:51 37.0 66 16 131/79 (96) 96 Room Air 11/14/22 23:30 36.6 64 20 129/74 (92) 97 Room Air 11/14/22 22:07 97 Room Air 11/14/22 20:57 Room Air 11/14/22 19:51 37.0 71 20 135/76 (95) 96 Room Air 11/14/22 15:48 37.0 55 18 134/83 (100) 95 Room Air 11/14/22 11:26 36.6 60 18 120/75 (90) 94 Room Air 11/14/22 08:00 Room Air I & O 11/15/22 07:00 Intake Total 3810 ml Balance 3810 ml Capillary Refill : Less Than 3 Seconds General Appearance: No Apparent Distress, WD/WN, Obese HEENT: PERRL/EOMI, Moist Mucous Membranes; No Photophobia, No Tonsillar Exudate Neck: Non Tender, Lymphadenopathy (R) Respiratory: Chest Non Tender, Lungs Clear, No Accessory Muscle Use, No Respiratory Distress Cardiovascular: Regular Rate, Rhythm, No Edema Peripheral Pulses: 2+ Radial Pulses (R), 2+ Radial Pulses (L) Gastrointestinal: non tender, soft; No distended, No guarding Extremity: No No Calf Tenderness, No No Pedal Edema, No Inflammation Neurologic/Psychiatric: Alert, Oriented x3, Normal Mood/Affect Skin: Warm/Dry; No Diaphoresis, No Pallor, No Rash; Other (facial redness and swelling improved from yesterday, right nostril still erythematous and swollen. ) Lymphatic: Other (anterior cervical) Results Lab Laboratory Tests 11/15/22 05:26: White Blood Count 6.5, Red Blood Count 4.35, Hemoglobin 14.1, Hematocrit 41, Mean Corpuscular Volume 94, Mean Corpuscular Hemoglobin 32, Mean Corpuscular Hemoglobin Concent 35, Red Cell Distribution Width 12.6, Platelet Count 220, Mean Platelet Volume 10.3, Immature Granulocyte % (Auto) 0, Neutrophils (%) (Auto) 57, Lymphocytes (%) (Auto) 27, Monocytes (%) (Auto) 11, Eosinophils (%) (Auto) 4, Basophils (%) (Auto) 1, Neutrophils # (Auto) 3.7, Lymphocytes # (Auto) 1.8, Monocytes # (Auto) 0.7, Eosinophils # (Auto) 0.2, Basophils # (Auto) 0.0, Immature Granulocyte # (Auto) 0.0, Sodium Level 139, Potassium Level 4.2, C hloride Level 109H, Carbon Dioxide Level 18L, Anion Gap 12, Blood Urea Nitrogen 12, Creatinine 0.92, Estimat Glomerular Filtration Rate 98, BUN/Creatinine Ratio 13, Glucose Level 119H, Calcium Level 9.3, Corrected Calcium 9.8, Total Bilirubin 0.5, Aspartate Amino Transf (AST/SGOT) 34, Alanine Aminotransferase (ALT/SGPT) 41, Alkaline Phosphatase 60, Total Protein 6.6, Albumin 3.4 Microbiology 11/14/22 MRSA Screen - Final, Complete Assessment/Plan Assessment/Plan Assessment/Plan Facial Cellulitis Hx of MRSA infections Lymphadenopathy cervical * pt does not appear to have need of incision & drainage still * Continue conservative management with current abx regimen * Cevical lymphadenopathy likely reactive SANDOVAL FORMAN Nov 15, 2022 07:53
[2022-11-15 08:42] VITALS: BP 129/90
[2022-11-15] MEDS: DOCUSATE SODIUM 100 MG (COLACE) CAP PO SCH (09:00)
[2022-11-15] MEDS: SENNOSIDES 8.6 MG (SENOKOT) TAB PO SCH (09:00)
--- NOTE | 2022-11-15 11:17 | Discharge Summary ---
Discharge Summary Hospital Course Was the Problem List Reviewed?: Yes Problems/Dx: (1) CELLULITIS OF NOSE AND FACE Hospital Course Date of Admission: Nov 14, 2022 at 05:46 Admission Diagnosis : Family Physician/Provider: aRquel Soliz [employer] Date of Discharge: 11/15/22 Discharge Diagnosis: [ ] Hospital Course: Mr. Fuentes is a 57 year old male with pmhx significant for hep C (untreated), hx of MRSA infections who presented to the ED on the day of admission with infection to the nose and face. Pt was admitted from 11/14-11/15. He has a hx of this in 2016 and has had MRSA in the nose and MRSA infections in multiple areas of the body. Pt reports that he went to [facility] clinic the day before coming in the ED and was prescribed toradol, oral clindamycin and steroids. He says that after [facility] visit he had severe worsening pain during the night which caused him to go to the ER. Pt improved during admission and status was table. He received Torodol for pain and IV antibiotics. General surgery was consulted and no descrete abscess was formed so treatment was conservative management and no need for I&D. Pt discharged with continuation of Clindamycin he received from [facility] and to follow up with PCP. CT scan showed moderate paranasal and right anterior face soft tissue edema without descrete abscess and there is what appears to be a right submandibular lymph node 1.8 cm ZITA JOSE Labs and Pending Lab Test: Laboratory Tests 11/15/22 05:26: White Blood Count 6.5, Red Blood Count 4.35, Hemoglobin 14.1, Hematocrit 41, Mean Corpuscular Volume 94, Mean Corpuscular Hemoglobin 32, Mean Corpuscular Hemoglobin Concent 35, Red Cell Distribution Width 12.6, Platelet Count 220, Mean Platelet Volume 10.3, Immature Granulocyte % (Auto) 0, Neutrophils (%) (Auto) 57, Lymphocytes (%) (Auto) 27, Monocytes (%) (Auto) 11, Eosinophils (%) (Auto) 4, Basophils (%) (Auto) 1, Neutrophils # (Auto) 3.7, Lymphocytes # (Auto) 1.8, Monocytes # (Auto) 0.7, Eosinophils # (Auto) 0.2, Basophils # (Auto) 0.0, Immature Granulocyte # (Auto) 0.0, Sodium Level 139, Potassium Level 4.2, Chloride Level 109H, Carbon Dioxide Level 18L, Anion Gap 12, Blood Urea Nitrogen 12, Creatinine 0.92, Estimat Glomerular Filtration Rate 98, BUN/Creatinine Ratio 13, Glucose Level 119H, Calcium Level 9.3, Corrected Calcium 9.8, Total Bilirubin 0.5, Aspartate Amino Transf (AST/SGOT) 34, Alanine Aminotransferase (ALT/SGPT) 41, Alkaline Phosphatase 60, Total Protein 6.6, Albumin 3.4 Microbiology 11/14/22 MRSA Screen - Final, Complete Home Meds Active Reported Tylenol Extra Strength (Acetaminophen) 500 Mg Tablet 1,000 Mg PO Q8H PRN Ibuprofen 200 Mg Tablet 400-600 Mg PO Q8H PRN Clindamycin HCl 150 Mg Capsule 450 Mg PO TID TAKES 3 (150MG) CAPS TAKES 11-13-2022 #90/10 DAY SUPPLY Assessment/Pt Instructions PCP 1 week Discharge Planning: <30 minutes discharge planning Discharge Physical Examination Vital Signs Vital Signs Date Time Temp Pulse Resp B/P (MAP) Pulse Ox O2 Delivery O2 Flow Rate FiO2 11/15/22 10:25 96 Room Air 0.00 11/15/22 08:42 36.7 65 19 129/90 (103) 11/14/22 06:16 21 General Appearance: No Apparent Distress, WD/WN, Chronically ill Skin: Rash (improved nose cellulitis) Allergies: Coded Allergies: amoxicillin (Verified Allergy, Intermediate, NAUSEA AND VOMITING, 11/14/22) Discharge Summary Date of Admission Nov 14, 2022 at 05:46 Date of Discharge Discharge Date: Nov 15, 2022 Admission Diagnosis cellulitis RASHEL RAMSEY DO Nov 15, 2022 11:17
--- NOTE | 2022-11-15 11:55 | Progress Note ---
ZITA JOSE 11/15/22 1155: Progress Note Mr. Fuentes is a 57 year old male with pmhx significant for hep C (untreated), hx of MRSA infections who presented to the ED on the day of admission with infection to the nose and face. Pt was admitted from 11/14-11/15. He has a hx of this in 2016 and has had MRSA in the nose and MRSA infections in multiple areas of the body. Pt reports that he went to [facility] clinic the day before coming in the ED and was prescribed toradol, oral clindamycin and steroids. He says that after [facility] visit he had severe worsening pain during the night which caused him to go to the ER. Pt improved during admission and status was table. He received Torodol for pain and IV antibiotics. General surgery was consulted and no descrete abscess was formed so treatment was conservative management and no need for I&D. Pt discharged with continuation of Clindamycin he received from [facility] and to follow up with PCP. CT scan showed moderate paranasal and right anterior face soft tissue edema without descrete abscess and there is what appears to be a right submandibular lymph node 1.8 cm MEDINA RAMSEY DO 11/15/22 1610: Supervisory-Addendum Brief Verification & Attestation Participated in pt care: history, MDM, physical Personally performed: exam, history, MDM, supervision of care Care discussed with: Medical Student Procedures: n/a Results interpretation: Verified all documentation Verification and Attestation of Medical Student E/M Service A medical student performed and documented this service in my presence. I reviewed and verified all information documented by the medical student and made modifications to such information, when appropriate. I personally performed the physical exam and medical decision making. Medina Ramsey, Nov 15, 2022,16:10 ZITA JOSE Nov 15, 2022 11:55 MEDINA RAMSEY DO Nov 15, 2022 16:10
[2022-11-15 12:31] VITALS: BP 134/87
[2022-11-15 12:45] VITALS: BP 134/87
[2022-11-15] MEDS ORDERED: TROUGH ORDER-PHARMACY XX ONE (16:00)
== END 2022-11-15 14:20 | disposition home or self-care (01) ==
LOC: ER 02:47 → 4TH 05:46 → INTOOBSV 05:46
PROVIDERS: ADMIT Internal Medicine; ATTEND Internal Medicine
DX: L03.211 Cellulitis of face (principal); B19.20 Unspecified viral hepatitis C without hepatic coma; R59.0 Localized enlarged lymph nodes; Z87.891 Personal history of nicotine dependence; Z86.14 Personal history of Methicillin resistant Staphylococcus aureus infection; Z88.1 Allergy status to other antibiotic agents
CPT/HCPCS: 70487; 80053 ×2; 80306; 81000; 83605; 83735; 85025 ×2; 85610; 85652; 85730; 86141; 87040; 87070; 87077; 87081; 87186; 94760; 96366; 96372 ×2; 96376 ×2; 99284; G0378; G0480; 36415; 80320